=== PATIENT | male | born 1985 | race Caucasian/White ===

== ENCOUNTER 2018-07-16 22:22 | Emergency (ER) | payer SELFPAY ==
[~2018-07-16] VITALS: Ht 162.6 cm; Wt 83.9 kg
[2018-07-16 22:26] VITALS: BP 154/100
--- NOTE | 2018-07-16 22:30 | NUR ---
PT PROVIDED URINE SAMPLE AND SENT BACK TO LOBBY VSS.
--- NOTE | 2018-07-16 23:00 | NUR ---
32 YO MALE COMES TO ER FOR C/O RLQ PAIN, PT STATES IT IS SHARP 10/10 NON RADIATING. PT DENIES NUMBNESS/TINGLING. PT DENIES FEVER OR CHILLS. PT AAOX4 AMB @ BEDSIDE. S1 S2, NO EDEMA. LUNGS CLEAR EVEN UNLABORED. ABD SOFT TENDER TO TOUCH ON RLQ. LAST BM 07/16/18. SKIN INTACT. WILL UPDATE ER MD.WILL CONTINUE TO OBSERVE.
[2018-07-16 23:05] LABS: APPEARANCE,URINE HAZY (CLEAR); BILIRUBIN,URINE NEGATIVE (NEGATIVE); BLOOD, URINE 3+ (NEGATIVE); COLOR,URINE YELLOW (YELLOW); LEUKOCYTE ESTERASE ,URINE NEGATIVE (NEGATIVE); NITRITE, URINE NEGATIVE (NEGATIVE); PH,URINE 5.5 (5.0-9.0); UGLUCOSE NEGATIVE (NEGATIVE)
[2018-07-16 23:23] LABS: RBC,URINE TOO NUMEROUS TO COUN /HPF (0-5)
[2018-07-16 23:24] LABS: BASOPHILS # (AUTO) 0.1 K/uL (0.00-0.22); BASOPHILS % (AUTO) 0.7 % (0.0-2.0); EOSINOPHILS # (AUTO) 0.4 K/uL (0-0.4); HEMATOCRIT 44.7 % (36-52); HEMOGLOBIN 14.8 g/dL (12.0-18.0); LYMPHOCYTES # (AUTO) 3.5 K/uL (2.0-11.5); LYMPHOCYTES % (AUTO) 28.9 % (20.5-51.1); MEAN CORPUSCULAR HEMOGLOBIN 28 pg (27-31); MEAN CORPUSCULAR HGB CONC 33 g/dL (33-37); MEAN CORPUSCULAR VOLUME 85.2 fL (80-94); MONOCYTES # (AUTO) 0.9 K/uL (0.8-1.0); NEUTROPHILS # (AUTO) 7.3 K/uL (1.8-7.7); NEUTROPHILS % (AUTO) 60.4 % (42.2-75.2); PLATELET COUNT (AUTO) 330 K/uL (140-450); RED BLOOD CELL COUNT(AUTO) 5.25 MIL/uL (4.20-6.10); RED CELL DISTRIBUTION WIDTH 13.4 % (11.6-13.7); WHITE BLOOD COUNT (AUTO) 12.1 K/uL (4.8-10.8)
[2018-07-16 23:33] LABS: ANION GAP 13.6 (8-16); CARBON DIOXIDE 28.6 mmol/L (21-32); CREATININE 0.9 mg/dL (0.7-1.3); POTASSIUM 4.2 mmol/L (3.5-5.1)
[2018-07-16] MEDS ORDERED: KETOROLAC 30 MG/ML VIAL IVP ONE (23:35)
[2018-07-16] MEDS ORDERED: NACL 0.9% 1,000 ML IV ONE (23:35)
[2018-07-16 23:39] LABS: ALBUMIN 4.7 g/dL (3.4-5.0); TOTAL BILIRUBIN 0.4 mg/dL (0.0-1.0)
--- NOTE | 2018-07-17 01:31 | NUR ---
Dr. Wilson evaluating patient at bedside.
[2018-07-17 01:55] VITALS: BP 130/81
--- NOTE | 2018-07-17 01:55 | NUR ---
Patient discharged with v/s stable. Written and verbal after care instructions given and explained. Patient alert, oriented and verbalized understanding of instructions. Ambulatory with steady gait. All questions addressed prior to discharge. ID band removed. Patient advised to follow up with PMD. Rx of FLOMAX, MOTRIN, AND NORCO given. Patient educated on indication of medication including possible reaction and side effects. Opportunity to ask questions provided and answered.
== END 2018-07-17 01:55 | disposition home or self-care (01) ==
LOC: MED 22:22
DX: N20.0 Calculus of kidney (principal); Z90.49 Acquired absence of other specified parts of digestive tract
CPT/HCPCS: 36415; 74176; 80053; 81001; 83690; 85025; 87086; 96374; 99284; J1885; J7030